=== PATIENT | female | born 1980 | race Caucasian/White ===

== ENCOUNTER → 2016-12-05 | Outpatient (CLI) | payer OTHER ==
--- NOTE | 2016-12-05 10:32 | REP ---
Cervical spine series: Seven views. History: Sacroiliitis. Findings: Lateral views done in flexion/extension and neutral position show preserved vertebral body heights. Alignment is normal. There is degenerative disc disease with narrowing and anterior osteophyte formation at C5-6. No subluxation or instability is seen. Oblique radiographs demonstrate mild uncovertebral spurring at C5-6 bilaterally producing mild neural foraminal encroachment. AP and open mouth odontoid views demonstrate artifact from the patient's ponytail overlying the cervical spine but no significant bony abnormality. The mandible is edentulous. Impression: Degenerative disc disease with mild bilateral uncovertebral spurring at C5-6. Signed by Puneet Parekh MD 12/05/2016 12:24 P
--- NOTE | 2016-12-05 10:33 | REP ---
Lumbar spine series: Eight views. History: Sacroiliitis. Findings: AP view shows a mild dextroconvex curvature in the lumbar spine. Psoas margins are symmetric. Lumbar vertebral body heights are preserved. Alignment is normal. Lumbar disc spaces are maintained. Pedicles and posterior elements are intact. There is no evidence of spondylolysis or spondylolisthesis. Flexion/extension images show no subluxation or instability. Impression: Minimal dextroconvex curvature. Otherwise negative lumbar spine views. Signed by Puneet Parekh MD 12/05/2016 12:24 P
--- NOTE | 2016-12-05 15:01 | REP ---
SI joint series: Four views. History: Sacral ileitis. Findings: Four views of the sacroiliac joints show no evidence of erosive change or ankylosis. There is mild sclerosis on the iliac side of the left SI joint. No bony destructive lesion. Impression: No evidence of erosion or ankylosis. Mild sclerosis on the left side. Signed by Puneet Parekh MD 12/05/2016 04:33 P
== END ==
LOC: M RAD 09:16
PROVIDERS: ATTEND Neurological Surgery
DX: M46.02 Spinal enthesopathy, cervical region (principal); M47.892 Other spondylosis, cervical region; M46.1 Sacroiliitis, not elsewhere classified